=== PATIENT | female | born 1995 | race Caucasian/White ===

== ENCOUNTER 2021-03-17 08:14 | Emergency (ER) | payer OTHER, SELFPAY ==
[2021-03-17 08:20] VITALS: BP 145/93; PULSE 75; RESP 18; TEMP 36.8; O2SAT 95; BMI 37.5
--- NOTE | 2021-03-17 08:37 | XR_ITS ---
WS: [id number] Portable AP upright chest, 03/17/2021 Clinical Data: pleuritic pain, upper left Comparison: None. Findings: No nodules, masses or effusions are seen. The heart is normal. The pulmonary vascularity is not increased. No pneumonia or pneumothorax is seen. XR/XR chest 1V portable [id number] Impression: Negative chest.
--- NOTE | 2021-03-17 08:38 | W.ED.BACK ---
HPI - Back Pain/Injury General: Chief Complaint: COVID symptoms Stated Complaint: back/shoulder pain Time Seen by Provider: 03/17/21 08:22 History of Present Illness: HPI Narrative: Patient complains about ongoing head congestion ear pressure sinus pain body aches fever the last few days. 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 Patient woke up this morning had a sharp pain upper left chest. Last about 2 seconds when it happens has been intermittent. Does hurt with deep inspiration. Patient does have a cough. Patient has had covid symptoms patient is nonvaccinated MD elicited complaint: back pain Onset (ago): minute(s) Timing: intermittent Severity: mild Similar Symptoms Previously: No Associated symptoms: Reports chills and fever(s); Deny abdominal pain, nausea or vomiting Review of Systems Const: Reports: fever(s), chills and body aches Eyes: Denies: change in vision or blurry vision ENMT: Reports: ear or mastoid pain, nasal congestion, sinus pain and other; Denies: throat pain Card: Reports: chest pain (On inspiration left upper chest); Denies: dyspnea on exertion Resp: Reports: non-productive cough; Denies: dyspnea or productive cough GI: Denies: abdominal pain, nausea or vomiting Musc: Denies: extremity pain Skin/Breast: Denies: rash Neuro: Denies: headache(s) Psych: Denies: anxiety or depression Jimmy/Lymph: Denies: easy bruising [facility] ED Female Reproductive History: Date of last menstrual period: 03/02/21 Physical Exam Const: COMMON NORMALS: no acute distress, average body habitus and patient oriented x3 HENMT: COMMON NORMALS: normocephalic and Normal external nose present HEAD & SCALP: normal to inspection and normocephalic FACE & SINUS: normal facial exam NOSE: Normal external nose present TYMPANIC MEMBRANE: TM abnormal TM laterality: bilateral bulging and wth effusion MOUTH: Normal oral and palatal mucosa present OTHER: Patient sounds congested talking in a nasally tone Eye: COMMON NORMALS: conjunctivae normal GENERAL EYE: appearance normal, both eyes and all related structures CONJUNCTIVA: Yes conjunctivae normal Neck/C-Spine: COMMON NORMALS: no JVD Chest: COMMONS NORMALS: normal inspection of the chest Resp: COMMON NORMALS: normal respiratory effort and clear to auscultation bilaterally AUSCULTATION: clear to auscultation bilaterally Cardio: COMMON NORMALS: no JVD, regular rate and regular rhythm RATE: regular rate RHYTHM: regular rhythm GI: COMMON NORMALS: Normal to inspection, nondistended, normoactive bowel sounds present Extremity: COMMON NORMALS: normal to inspection and full ROM Neuro: COMMON NORMALS: patient oriented x3 Course Vital Signs: Vital signs: Vital Signs Temperature 98.3 F 03/17/21 08:20 Pulse Rate 75 03/17/21 08:20 Respiratory Rate 18 03/17/21 08:20 Blood Pressure 145/93 03/17/21 08:20 Pulse Oximetry 75 L 03/17/21 08:20 Coding Level of Care Code ED Advice Nurse for Leeanna Tucker
[2021-03-17 08:49] VITALS: O2SAT 98
[2021-03-17 09:15] LABS: SARS Covid-2 Antigen Negative (Negative)
[2021-03-17] MEDS: methylPREDNISolone (DEPO) 80 MG/ML INJ 1 mL IM (09:27)
[2021-03-17 09:51] VITALS: BP 129/91; PULSE 75; RESP 16; O2SAT 97
== END 2021-03-17 09:53 | disposition home or self-care (01) ==
PROVIDERS: Emergency Provider Nurse Practitioner Family
DX: R50.9 Fever, unspecified (principal); R09.81 Nasal congestion; Z20.822 Contact with and (suspected) exposure to COVID-19
CPT/HCPCS: 71045; 87426; 96372; 99283; J1040

== ENCOUNTER → 2024-02-21 10:48 | Outpatient (BNVA) | payer OTHER, SELFPAY | PROVIDERS: PCP Clinical Nurse Specialist Adult Health; Visit Provider Clinical Nurse Specialist Adult Health | DX: E66.01 Morbid (severe) obesity due to excess calories (principal); E28.2 Polycystic ovarian syndrome; E16.1 Other hypoglycemia | CPT/HCPCS: 80053; 83036; 83525; 84439; 84443; 85025 ==

== ENCOUNTER 2024-05-13 15:15 | Outpatient (CLI) | payer OTHER, SELFPAY ==
[2024-05-14 01:13] LABS: Estmated Average Glucose 128; Hemoglobin A1C 6.1 % (4.0-6.0)
[2024-05-15 08:15] LABS: Insulin ( Reference Lab Test) 79.9 uIU/mL
== END 2024-05-13 15:16 | disposition home or self-care (01) ==
LOC: LAB 15:16
PROVIDERS: PCP Clinical Nurse Specialist Adult Health; Visit Provider Clinical Nurse Specialist Adult Health
DX: R73.03 Prediabetes (principal); E16.1 Other hypoglycemia
CPT/HCPCS: 36415; 83036; 83525

== ENCOUNTER → 2024-06-26 15:38 | Outpatient (BNVA) | payer OTHER, SELFPAY | PROVIDERS: PCP Clinical Nurse Specialist Adult Health; Visit Provider Nurse Practitioner Family | DX: Z20.822 Contact with and (suspected) exposure to COVID-19 (principal); R68.89 Other general symptoms and signs | CPT/HCPCS: 87400; 87426 ==

== ENCOUNTER 2025-01-13 10:18 | Outpatient (CLI) | payer OTHER, SELFPAY ==
[2025-01-13 10:46] LABS: Bilirubin Urine Negative (Negative); Blood Urine Negative (Negative); Glucose Urine UA Negative (Normal); Ketones Urine Negative (Negative); Leukocyte Esterase Urine 1+ (Negative); Nitrate Urine Negative (Negative); Protein Urine Negative (Negative); Specific Gravity, Urine 1.022 (1.005-1.030); Urine Appearance Clear (CLEAR); Urine Color Yellow (Yellow); Urobilinogen Urine 0.2 mg/dL (Negative)
[2025-01-13 10:51] LABS: Add Urine Microscopic? YES; Bacteria Urine 3+ /hpf; Hyaline Casts Urine 1.65 /lpf; Squamous Epithelial Cell Urine 0-5 /hpf (0-5)
[2025-01-13 11:05] LABS: Add Urine Culture? Yes
== END 2025-01-13 10:19 | disposition home or self-care (01) ==
PROVIDERS: PCP Clinical Nurse Specialist Adult Health; Visit Provider Nurse Practitioner
DX: Z01.818 Encounter for other preprocedural examination (principal)
CPT/HCPCS: 81001; 87086

== ENCOUNTER → 2025-01-30 11:16 | Outpatient (BNVA) | payer OTHER, SELFPAY | PROVIDERS: Visit Provider Nurse Practitioner | DX: R39.9 Unspecified symptoms and signs involving the genitourinary system (principal); N39.0 Urinary tract infection, site not specified | CPT/HCPCS: 81000; 87086 ==

== ENCOUNTER 2025-05-25 14:07 | Outpatient (CLI) | payer OTHER, SELFPAY ==
[2025-05-25 17:37] LABS: HIV 1 & 2 Antigen Non-Reactive (Non-Reactiv)
[2025-05-25 20:14] LABS: Hepatitis B Surface Antigen Non-Reactive (Nonreactive)
== END 2025-05-25 14:08 | disposition home or self-care (01) ==
PROVIDERS: Visit Provider Family Medicine
DX: Z01.89 Encounter for other specified special examinations (principal)
CPT/HCPCS: 86706; 86803; 87340; 87806